=== PATIENT | female | born 1955 | race Caucasian/White ===

== ENCOUNTER 2025-02-10 13:15 | Outpatient (AMB) | payer MEDICARE, SELFPAY ==
--- NOTE | 2025-02-10 13:29 | A.OFFVIS_ITS ---
Intake Visit Reasons: restless leg syndrome Allergies doxycycline Allergy (Unknown, Verified 02/05/25 09:51) Unknown Penicillins Allergy (Unknown, Verified 02/05/25 09:51) Unknown tramadol Allergy (Unknown, Verified 02/05/25 09:51) Unknown Medication List - Last Reconciled 02/10/25 by Jeremy Garcia MD aspirin 81 mg PO DAILY atorvastatin 40 mg PO DAILY cetirizine 10 mg PO DAILY esomeprazole magnesium 40 mg PO BID gabapentin 800 mg PO TID glipizide ER 2.5 mg PO DAILY metformin 1,000 mg PO BID morphine ER 15 mg PO Q8H oxycodone 10 mg PO TID PRN temazepam 22.5 mg PO BEDTIME PRN HPI Comments Details: This is a 70-year-old [place]i-speaking woman who is here with her daughter with complaints of right anterior thigh numbness tingling prickly sensation and heat. She also gets pain in the right buttock going to the lower back. She has had 3 previous back surgeries the last [address] Saba Solorzano about a year ago. She has chronic pain and takes morphine 15 mg 3 times a day, and oxycodone 10 mg 3 times a day. She is also on gabapentin 800 mg t.i.d.. She uses a lidocaine patch 5% p.r.n.. She has had previous weight loss surgery in 2011 and 2012. She is on metformin and glipizide for diabetes which is under control. Occasionally she has periods where her right leg and right hand will jerk when she is sleeping but this happens infrequently sometimes none for a month and then can happen about twice a week. She does not have a constant sensation of wanting to move the legs. In the last year she has put on about 30 lb and her weight has increased from 137lbs to 166 lbs. [facility] Medical History (Updated 02/10/25 @ 13:42 by Jeremy Garcia MD) Neuropathy involving both lower extremities ARELI (obstructive sleep apnea) Restless leg syndrome Review of Systems Const Reports weight gain ENT Reports neck pain Card Reports dyspnea Resp Reports dyspnea Musc Reports back pain, Reports arthralgias, Reports neck pain, Reports numbness and Reports tingling Neuro Reports numbness, Reports tingling, Reports paresthesias and Reports tremor(s) Psych Reports depression Physical Exam Neuro Other: ?Mini Mental Status Exam Level of Consciousness:?Alert.? Orientation:?Knows correct year, month, date, day and season.?Knows correct city, county and state. Knows correct location and floor.? Registration:?Able to register 3 objects.? Attention:?Serial 7's performed accurately.? Recall:?Able to recall 3 out of 3 objects.? Language:?Normal spontaneous speech, fluency, repetition, naming, comprehension, reading, and writing.? Total Score:?30/30.? Neurological Abnormal neurological findings:??none.? Mental Status:?Alert and oriented X 3.?Normal attention, orientation, memory, and affect.? Cranial Nerves:?Pupils are equal, round and reactive to light. Fundoscopy shows normal disc bilaterally. External occular muscles are intact. Visual schaeffer are full, no ptosis. Face is symmetrical, no facial weakness or droop. Facial sensations are normal. Tongue protrudes in midline. Palate elevates symmetrically. Shoulder shrugging is normal.? Motor Examination:?Normal muscle tone, bulk and strength.?No atrophy or fasciculations.?No drift of the extended upper extremities.?Deep tendon reflexes are 2+.?Plantars are flexor.? Motor Strength:? Proximal Muscles (out of 5):?5 Distal Muscles (out of 5):?5 Neck Flexors (out of 5):?5 Neck Extensors (out of 5):?5 Deltoid (out of 5):?5 Biceps (out of 5):?5 Triceps (out of 5):?5 Serratus Anterior (out of 5):?5 Wrist Extensors (out of 5):?5 APB (out of 5):?5 Finger Spread (out of 5):?5 Ileopsoas (out of 5):?5 Quadriceps (out of 5):?5 Hamstrings (out of 5):?5 Tibialis Anterior (out of 5):?5 Peronei (out of 5):?5 EDB (out of 5):?5 Gastrocnemius (out of 5):?5 Straight Leg Raising:?90 degrees.? Sensory Exam:?Normal light touch, temperature, pinprick, vibration and joint-position sensations.?Rhomberg sign is absent.? Coordination:?No ataxia,?no titubation,?ayabdu-pj-sruk, whfv-hnoc-xeey test, and rapid alternating movements were normal.? Gait Exam:?Within normal limits.? Cerebellar Signs:?Uthdus-sa-liev and rkso-zl-czzv is normal.?No dysdiadochokinesia.? Extrapyramidal System:?No tremor or?rigidity, normal facial expressions.?No bradykinesia. No bradyphrenia. Normal arm swing and posture. No propulsion or retropulsion.? Speech:?Normal,?no dysphasia or dysarthria.? General Examination GENERAL APPEARANCE:??normal,?in no acute distress?,?normal,?in no acute distress.? HEAD:??normocephalic,?atraumatic.? EYES:??sclera non-icteric,?conjunctiva clear.? EARS:??auditory canal clear,?tympanic membrane intact, clear.? NOSE:??no lesions.? ORAL CAVITY:??gums normal,?mucosa moist,?no lesions.? THROAT:??clear.? NECK/THYROID:??no cervical lymphadenopathy,?thyroid normal,?neck supple, full range of motion,?no carotid bruit.? SKIN:??no rashes,?no significant birthmarks.? HEART:??S1, S2 normal,?no murmurs?,?S1, S2 normal,?no murmurs.? LUNGS:??clear anteriorly and posteriorly?,?clear anteriorly and posteriorly.? CHEST:??no gross rib deformity,?clear to auscultation.? BACK:??normal exam of spine.? MUSCULOSKELETAL:??normal.? EXTREMITIES:??no edema?,?no edema.? PERIPHERAL PULSES:??normal.? PSYCH:??alert, oriented,?cognitive function intact,?cooperative with exam?,?alert, oriented,?cognitive function intact,?cooperative with exam.? Assessment & Plan Assessment & Plan (1) Meralgia paresthetica of right side: Code(s): G57.11 - Meralgia paresthetica, right lower limb Category: Medical (2) Lumbar radiculopathy, right: Code(s): M54.16 - Radiculopathy, lumbar region Category: Medical (3) Peripheral neuropathy: Code(s): G62.9 - Polyneuropathy, unspecified Category: [facility]. NCV/EMG Lower extremities. Orders: Orders NE electromyogram (EMG) Today G57.11 - Meralgia paresthetica, right lower limb, G62.9 - Polyneuropathy, unspecified, M54.16 - Radiculopathy, lumbar region NE nerve conduction velocity Today G57.11 - Meralgia paresthetica, right lower limb, G62.9 - Polyneuropathy, unspecified Coding Level of Care Code New Pt Level 5 (29832) Diagnoses Meralgia paresthetica of right side G57.11 Lumbar radiculopathy, right M54.16 Peripheral neuropathy G62.9
--- OUTSIDE RECORDS SUMMARY | 2025-02-11 05:49 | XMS_ITS ---
Author Name [facility] Organization Unknown Care Team Organization Name Specialty Phone Email Start Date End Da te [facility] MECHE MANGO Primary Care 01/31/2022 4
--- OUTSIDE RECORDS SUMMARY | 2025-02-11 05:49 | XMS_ITS | Clinical Summary ---
Author Organization [address] Address [address] [place] [address] Phone Care Team Providers Care Forensic Specialist Name Role Phone Shmuel Maldonado MD Primary Care Provider [phone] Allergies Active Allergy Reactions Criticality Noted Date Comments Doxycycline Nausea And Vomiting 01/22/2023 Penicillins 02/26/2014 Other Reaction(s): Rash/Dermatitis Tramadol 02/26/2014 Other Reaction(s): Rash/Dermatitis Medications amitriptyline (ELAVIL) 10 mg tablet Take 1 Tablet by mouth at bedtime. 01/25/20 24 Active ASCORBIC ACID, VITAMIN C, ORAL Take by mouth. Active medical supply, miscellaneous (MISCELLANEOUS MEDICAL SUPPLY MISC) Inhale into the lungs. BHIR-pressur e 6-12 Active lidocaine (LIDODERM) 5 % patch Place 1 Patch onto the skin every 12 hours. Apply for no more than 12 hours in any 24 hour period. 01/25/20 24 Active QUEtiapine (SEROquel) 50 mg tablet 01/25/20 24 Active triazolam (HALCION) 0.25 mg tablet 1 tablet (250 mcg total) at bedtime as needed. at bedtime. 06/21/19 21 Active temazepam (RESTORIL) 15 mg capsule TOME 1 C PSULA POR V A ORAL AL ACOSTARSE CUANDO SEA NECESARIO FOR SLEEP (NOT COVERED OVER 65) 07/11/19 25 Active cetirizine (ZyrTEC) 10 mg tablet TOME 1 TABLETA POR VIA ORAL TODOS LOS ALEXIS 90 tablet 1 10/11/19 25 Active aspirin 81 mg EC tablet Take 1 tablet (81 mg total) by mouth 1 (one) time each day. 90 tablet 1 11/05/19 25 Active atorvastatin (LIPITOR) 40 mg tablet Take 1 tablet (40 mg total) by mouth 1 (one) time each day. 90 tablet 1 12/06/19 25 Active esomeprazole (NexIUM) [address] capsule TOME 1 CAPSULA POR VIA ORAL TODOS LOS ALEXIS EN LA MANANA ANTES DEL DESAYUNO 90 capsule 1 12/17/19 25 Active doxepin (SINEquan) 25 mg capsule TOME 1 CAPSULA POR VIA ORAL TODOS LOS ALEXIS AL ACOSTARSE 90 capsule 1 12/17/19 25 Active metFORMIN (GLUCOPHAGE) 1,000 mg tablet Take 1 tablet (1,000 mg total) by mouth 2 (two) times a day with meals. 180 tablet 1 01/13/20 25 Active oxyCODONE (ROXICODONE) 10 mg immediate release tabletIndication s:Lumbar radiculopathy, chronic Take 1 tablet (10 mg total) by mouth 3 (three) times a day if needed for severe pain. Max Daily Amount: 30 mg 84 tablet 01/14/20 25 Active morphine (MS CONTIN) 15 mg 12 hr tabletIndication s:Lumbar radiculopathy, chronic Take 1 tablet (15 mg total) by mouth 2 (two) times a day. Do not crush, chew, or split. Max Daily Amount: 30 mg 56 tablet 01/14/20 25 Active glipiZIDE (GLUCOTROL XL) 2.5 mg 24 hr tablet Take 1 tablet (2.5 mg total) by mouth 1 (one) time each day. 90 tablet 1 02/05/20 25 Active gabapentin (Neurontin) 800 mg tablet Take 1 tablet (800 mg total) by mouth 3 (three) times a day. 270 each 1 02/05/20 25 Active blood-glucose meter kit Use to check blood sugar once daily. 1 each 02/05/20 25 Active blood sugar diagnostic (FreeStyle Lite Strips) test strip Use to check blood sugar once daily. 100 each 1 02/05/20 25 Active freestyle (FreeStyle Lancets) 28 gauge lancets Use to check blood sugar once daily. 100 each 1 02/05/20 25 Active diclofenac (VOLTAREN) 1 % topical gel Apply 2 g topically 4 (four) times a day. 100 g 1 02/05/20 25 Active blood-glucose meter kit Use to test blood sugar once daily. 05/23/19 24 025 Discontinued(R eorder) diclofenac (VOLTAREN) 1 % topical gel Apply 1 g topically 4 times daily as needed for Other (left knee pain). 01/25/20 025 Discontinued(R eorder) FREESTYLE LANCETS MISC Use to test blood sugar 2 times daily 11/02/19 025 Discontinued(R eorder) blood sugar diagnostic (FreeStyle Lite Strips) test strip TEST BLOOD SUGAR 2 TIMES DAILY 12/20/19 025 Discontinued(R eorder) glipiZIDE (GLUCOTROL XL) 2.5 mg 24 hr tablet Take 1 tablet (2.5 mg total) by mouth 1 (one) time each day. 90 tablet 1 09/12/19 025 Discontinued(R eorder) gabapentin (NEURONTIN) 300 mg capsule Take 3 Capsules by mouth 3 times daily. 270 capsule 11/05/19 025 Discontinued oxyCODONE (ROXICODONE) 10 mg immediate release tabletIndication s:Lumbar radiculopathy, chronic Take 1 tablet (10 mg total) by mouth 3 (three) times a day if needed for severe pain. Max Daily Amount: 30 mg 84 tablet 12/10/19 25 025 Discontinued(R eorder) morphine (MS CONTIN) 15 mg 12 hr tabletIndication s:Lumbar radiculopathy, chronic Take 1 tablet (15 mg total) by mouth 2 (two) times a day. Do not crush, chew, or split. Max Daily Amount: 30 mg 56 tablet 12/10/19 25 025 Discontinued(R eorder) Active Problems Problem Noted Date Diagnosed Date Arthritis 03/05/2024 Gastric ulcer 03/05/2024 HTN (hypertension) 03/05/2024 Hyperlipidemia 03/05/2024 MDD (major depressive disorder) 03/05/2024 Type 2 diabetes mellitus wit h neurologic complication ([facility] V24, [facility] V28) 03/05/2024 Spinal stenosis of lumbar region with radiculopa thy 09/21/2023 Overview (03/05/2024): Last Assessment & Plan: Ms. López is known to me from a right L3-4, right L4-5 MIS decompression on 02/13/2022. She initially did well but presents now with recurrent back pain radiating into her right leg. She is currently in PT which causes cramps in her thigh. Occasionally she has numbness of the right anterior thigh after 10 to 15 minutes of sitting or more than 5 minutes of walking. She is quite miserable. Repeat lumbar spine MRI from [facility] on 09/18/2023 is notable for persistent/recurrent foraminal stenosis on the right at L4-5. On exam, seated SLR is positive on the right at 90 degrees, strength is 5/5, sensation to light touch intact, she is ambulating with a cane. We discussed treatment options and she is terrified of needles and does not wish to consider injection therapy. She is not improving with physical therapy thus, we reviewed the option of a repeat right L4-5 decompression with foraminotomies. We discussed the details, risks, benefits and anticipated postoperative course. All questions were answered and she wishes to proceed. Lumbar radiculopathy, chronic 08/01/2023 Overview (03/05/2024): Last Assessment & Plan: Ms. López is about 2 weeks status post right sided L4-5 redo minimally invasive decompression, foraminotomies, and discectomy. Since the surgery she has had improvement in her right leg pain but still says that it hurts when she stands up. It is not as intense. She is pleased with her early postoperative results and I would agree with her. She will follow-up with Dr. Solorzano on an as-needed basis. Sacroiliitis ([facility] V24) 08/01/2023 Overview (03/05/2024): Last Assessment & Plan: Cristina describes pain that is centered just above her right buttock. It goes into the posterior proximal thigh and also up into the right flank. I gave her a prescription for an SI joint belt at her last visit but she did not fill it. She is currently in physical therapy. We once again talked about SI joint injections and an SI joint fusion. She has a significant phobia to needles and is not willing to consider an injection. I explained that if that was the case, she was stuck with treatments limited at SI joint belt and physical therapy. She will go to [facility] to get the SI joint belt. Calculus of kidney 07/31/2023 Chronic osteoarthritis 07/31/2023 Gastroesophageal reflux disease 07/31/2023 Generalized anxiety disorder 07/31/2023 Heartburn 07/31/2023 Hypoglycemia following gastrointestinal surgery 07/31/2023 Morbid obesity ([facility] V24, [facility] V28) 2023 Stress incontinence of urine 01/17/2023 Urinary urgency 01/17/2023 Hip pain, acute, right 01/31/2022 Overview (03/05/2024): Last Assessment & Plan: Though her hip pain could be related to the right L3 foraminal stenosis and nerve root compression, she had positive findings on mechanical testing and feels best when she is nonweightbearing. I am going to send her for right hip x-rays to look for osteoarthritis there. 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 López is here for second postop visit since a right L3-4 and right L4-5 MIS decompression on 02/13/2022. Her right low back and radiating leg pain has resolved however, she has persistent numbness of the right anterior thigh with occasional tingling particularly above the knee. They are often charley horse cramps in her thigh for which she applies moist heat with some benefit. She continues to have right ankle pain with movement and walking. She describes swelling and walks with a cane. On exam, her incision is well-healed, seated SLR is negative, strength 5/5, sensation to light touch is diminished at the distal right quadriceps. There is moderate swelling below the right ankle and she exhibits pain with movement in all directions. I believe she is improving from her lumbar radiculopathy and cautioned her that numbness can take up to a year to improve. We discussed stretching and strengthening as well. I believe her right ankle pain and swelling is unrelated and we will refer her to orthopedics. Chronic back pain 06/15/2020 Calcaneal spur of right foot 09/02/2019 Neuropathy involving both lower extremities 11/25 Sleep-related hypoventilation due to medical con dition 09/15/2016 Vitamin D deficiency 05/22/2016 Opioid type dependence ([facility] V24, [facility] V28 ) 07/15/2014 ARELI (obstructive sleep apnea) 07/15/2014 Overview (03/05/2024): Postlaminectomy syndrome, lumbar region 05/12/19 15 Pulmonary embolism ([facility] V24, [facility] V28) Encounters Date Type Department Care Team Description 02/04/2025 11:50 AM EST Lab Draw [address] Type 2 diabetes mellitus with diabetic neuropathy, without long-term current use of insulin ([facility] V24, [facility] V28); Hyperlipidemia, unspecified hyperlipidemia type; Anemia, unspecified type 02/04/2025 11:00 AM EST Office Visit Adult Medicine [address] [phone] Saira Venegas PA Encounter for long-term (current) use of medications (Primary Dx); Chronic low back pain, unspecified back pain laterality, unspecified whether sciatica present; Gastroesophageal reflux disease, unspecified whether esophagitis present; Type 2 diabetes mellitus with diabetic neuropathy, without long-term current use of insulin ([facility] V24, [facility] V28); Hyperlipidemia, unspecified hyperlipidemia type; Lumbar radiculopathy, chronic; History of hypertension; Major depressive disorder, remission status unspecified, unspecified whether recurrent; Insomnia, unspecified type; Urinary incontinence, unspecified type from Last 3 Months Immunizations Immunization Administration Dates Next Due Influenza Quadravalent, MDCK , 0.5ml, preservative free (Flucelvax) 6mo and older 12/15/2021,12/13/2020,12/05/2019 Influenza trivalent, 0.5mL ( Fluad) 65yo and older 01/25/2024 Influenza trivalent, 0.5mL, preservative free (Fluarix; FluLaval; Fluzone) ages 6mo and older (Afluria) 3 years and older 01/29/2015,01/16/2007 Influenza trivalent, with pr eservative (Fluzone; Afluria) 6mo and older 2014,12/05/2011 Influenza, Unspecified 01/02/2014 Pneumococcal polysaccharide 23 valent (Pneumovax 23) 2yo and older 04/13/2015 Pneumococcal, Unspecified 2014,03/26/2003 Td, Unspecified 10/14/2008 Tdap Tetanus diptheria acell ular pertussis (Boostrix; Adacel) 7yo and older 05/02/2016 Zoster recombinant (Shingrix ) 19yo and older 09/02/2024 Surgical History Surgery Date Site/Laterality Comments GASTRIC BYPASS 12/24/19 14 PROCEDURE: GASTRIC BYPASS FOR OBESIT OTHER SURGICAL HISTORY 01/20/20 14 PROCEDURE: HISTORICAL COSMETIC SURGERY; COMMENT: pannectomy of abdomen BACK SURGERY PROCEDURE: HISTORICAL BACK SURGERY KNEE SURGERY PROCEDURE: HISTORICAL KNEE SURGERY; COMMENT: Left SHOULDER SURGERY PROCEDURE: HISTORICAL SHOULDER SURGERY OTHER SURGICAL HISTORY PROCEDURE: UT ICAPSULAR CATARACT XTRJ INSJ IO LENS PRSTH 1 STG; COMMENT: Bilateral OTHER SURGICAL HISTORY PROCEDURE: VENA CAVA FILTER ESOPHAGOGASTRODUODENOSCOPY 11/2016, 02/2017, 10/2017, 12/2018 PROCEDURE: UT ESOPHAGOGASTRODUODENOSCOPY TRANSORAL DIAGNOSTIC; COMMENT: marginal ulcer found at the anastomosis. UPPER GASTROINTESTINAL ENDOSCOPY 10/21/19 PROCEDURE: UPPER GI ENDOSCOPY/EXAM; COMMENT: changes consistent with gastric bypass. NO ulcer. HYSTERECTOMY PROCEDURE: HISTORICAL HYSTERECTOMY OTHER SURGICAL HISTORY 02/14/20 PROCEDURE: UT BARRERA FACETECTOMY & FORAMOTOMY 1 VRT SGM LUMBAR; COMMENT: Right L3-4, right L4-5 minimally invasive decompression, Dr. Solorzano Medical History Medical History Date Comments HTN (hypertension) DX:HTN (hyper tension) Diabetes ([facility] V24, [facility] V28) DX:Diabetes ([facility]) Arthritis DX:Arthritis Hypercholesteremia DX:Hyperchole steremia Depression with anxiety DX:Depre ssion with anxiety Eric filter in place DX:Gr eenfield filter in place Diabetes mellitus type 2, uncontrolled DX:Diabetes mellitus type 2, uncontrolled MDD (major depressive disorder) DX:MDD (major depressive disorder) Diabetes mellitus type 2, di et-controlled ([facility] V24, [facility] V28) DX:Diabetes mellitus type 2 , diet-controlled ([facility]) Hyperlipidemia DX:Hyperlipidemi a Postlaminectomy syndrome, lumbar region 5 DX:Postlaminectomy syndrome, lumbar region Gastric ulcer DX:Gastric ulcer Esophageal reflux DX:Esophageal reflux Cerebrovascular disease DX:Cereb rovascular disease Family History Medical History Relation Name Comments Prostate cancer Brother 1 x 2 Diabetes Father's side Coronary artery disease Mother's side 1 Hypertension Mother's side 2 Breast cancer Neg Hx Colon cancer Neg Hx Ovarian cancer Neg Hx Relation Name Status Comments Brother 1 Brother 2 Alive x 9 Brother 3 x 11; prostate CA, AIDs Daughter Alive x 4; 1 with fib romyalgia; cervical cancer x 2 Father Father's side Maternal Grandfather Maternal Grandmother Mother Mother's side 1 Mother's side 2 Paternal Grandfather Paternal Grandmother Sister Alive x 3 Social History Tobacco Use Types Packs/Day Years Used Date Smoking Tobacco: Never Smokeless Tobacco: Never Tobacco Cessation:Counseling Given: Not Answered Alcohol Use Standard Drinks/Week Comments No 0 (1 standard drink = 0.6 oz pur e alcohol) Comments Unknown Sex and Gender Information Value Date Recorded Sex Assigned at Not on file Legal Sex Female 2:08 AM EST Gender Identity Not on file Sexual Orientation Not on file Obstetrics History Last Filed Vital Signs Vital Sign Reading Time Taken Comments Blood Pressure 120/70 02/04/2025 11:10 AM EST Pulse 94 02/04/2025 11:10 AM EST Temperature 36.3 C (97.4 F) 02/04/2025 11:10 AM EST Respiratory Rate 16 11/04/2024 10:53 AM EDT Oxygen Saturation 94% 02/04/2025 11:10 AM EST Inhaled Oxygen Concentration - - Weight 75.5 kg (166 lb 6.4 oz) 02/04/2025 11:10 AM EST Height 154.9 cm (5' 0.98 ) 02/04/2025 11:10 AM Susan BRAVO Body Mass Index 31.46 02/04/2025 11:10 AM EST Plan of Treatment Upcoming Encounters Date Type Department Care Team (Late st Contact Info) Description 05/19/2025 3:30 PM EST Office Visit Adult Medicine [facility] [address] [place] [address] Shmuel Maldonado MD [address] [place] [phone] Health Maintenance Due Date Last Done Comments Breast Cancer Screening 1955 Diabetes: Annual Foot Exam 1967 Hepatitis A Vaccines (1 of 2 - Risk 2-dose series) 01/21/1976 RSV Immunization Adult Patients (1 - Risk 50-74 years 1-dose series) 2007 Pneumococcal Vaccine: 50+ Years (2 of 2 - PCV) 04/13/2016 04/13/2015, 2014, 2014, Additional history exists Falls Risk Assessment 03/04/2022 Osteoporosis Screening (Bone Density Screening) 03/04/2022 Social Influencers of Health Screening 03/04/2022 Medicare Annual Wellness Visit 01/24/2024 01/23/2023 Depression Screening 03/26/2024 Diabetes: Annual Retina Eye Exam 07/15/2024 07/16/2023 Zoster Vaccines (2 of 2) 10/28/2024 09/02/2024 COVID-19 Vaccine ( - season) 2024 01/27/2021, 01/06/2021 Influenza Vaccine (#1) 2024 , 12/15/2021, 12/13/2020, Additional history exists Diabetes: Blood Sugar Control Test (HGBA1C) 08/04/2025 02/04/2025, 11/04/2024, 08/08/2024, Additional history exists Diabetes: Annual Urine Albumin-Creatinine Ratio (uACR) 08/08/2025 08/08/2024, 01/31/2024, 07/26/2023 Diabetes: Annual GFR (Glomerular Filtration Rate) 02/04/2026 02/04/2025, 08/08/2024, 01/25/2024, Additional history exists Hypertension/CHF/CAD Annual BMP Blood Test 02/04/2026 02/04/2025, 08/08/2024, 01/25/2024, Additional history exists DTaP,Tdap,and Td Vaccines (3 - Td or Tdap) 05/02/2026 05/02/2016, 10/14/2008 Colorectal Cancer Screening: Colonoscopy 07/19/2026 07/19/2016 Cholesterol Screening (Lipid Panel) 02/04/2030 02/04/2025, 08/08/2024, 01/25/2024, Additional history exists Hepatitis C Screening Completed 11/16/2014 HIB Vaccines Aged Out No longer eligi ble based on patient's age to complete this topic HPV Vaccines Aged Out No longer eligi ble based on patient's age to complete this topic Hepatitis B Vaccines Aged Out No long er eligible based on patient's age to complete this topic IPV Vaccines Aged Out No longer eligi ble based on patient's age to complete this topic MMR Vaccines Aged Out No longer eligi ble based on patient's age to complete this topic Meningococcal ACWY Vaccine Aged Out N o longer eligible based on patient's age to complete this topic Meningococcal B Vaccine Aged Out No l onger eligible based on patient's age to complete this topic RSV Immunization Patients Under 20 months Aged Out No longer eligible based on patient's age to complete this topic Varicella Vaccines Aged Out No longer eligible based on patient's age to complete this topic Procedures Procedure Name Priority Date/Time Associated Diagnosis Comments CBC WITH AUTO DIFFERENTIAL Routine 02/04/2025 12:03 PM EST Anemia, unspecified type CBC AND DIFFERENTIAL Routine 02/04/2025 12:03 PM EST Anemia, unspecified type FERRITIN Routine 02/04/2025 12:03 PM EST Anemia, unspecified type FOLATE Routine 02/04/2025 12:03 PM EST Anemia, unspecified type IRON AND TIBC Routine 02/04/2025 12:03 PM EST Anemia, unspecified type VITAMIN B12 Routine 02/04/2025 12:03 PM EST Anemia, unspecified type HEMOGLOBIN A1C Routine 02/04/2025 12:03 PM EST Type 2 diabetes mellitus with diabetic neuropathy, without long-term current use of insulin ([facility] V24, [facility] V28) LIPID PANEL WITH REFLEX TO DIRECT LDL Routine 02/04/2025 12:03 PM EST Type 2 diabetes mellitus with diabetic neuropathy, without long-term current use of insulin ([facility] V24, [facility] V28) Hyperlipidemia, unspecified hyperlipidemia type COMPREHENSIVE METABOLIC PANEL Routine 02/04/2025 12:03 PM EST Type 2 diabetes mellitus with diabetic neuropathy, without long-term current use of insulin ([facility] V24, [facility] V28) MICROALBUMIN CREATININE URINE RATIO Routine 08/08/2024 10:54 AM EDT Type 2 diabetes mellitus with diabetic neuropathy, without long-term current use of insulin ([facility] V24, [facility] V28) DIABETES EYE EXAM Routine 07/16/2023 COLONOSCOPY Routine 07/19/2016 HEPATITIS C SCREENING Routine 11/16/2014 from Last 3 Months or Most Recently Relevant to Health Maintenance Results * Lipid panel with reflex to direct LDL (02/04/2025 12:03 PM EST) Cholesterol 137 0 - 200 mg/dL LAB CHEMISTRY METHOD 02/04/2025 3:54 PM EST [facility] Triglycerides 123 0 - 150 mg/dL LAB CHEMISTRY METHOD 02/04/2025 3:54 PM EST [facility] HDL 60 >=40 mg/dL LAB CHEMISTRY METHOD 02/04/2025 3:54 PM EST [facility] LDL Calculated 52 0 - 100 mg/dL LAB CHEMISTRY METHOD 02/04/2025 3:54 PM [facility] Comment:Estimated LDL Calcul ated using equation: Total cholesterol - HDL cholesterol - (Triglycerides/5) VLDL Cholesterol Curtis 24.6 mg/dL LAB CHEMISTRY METHOD 02/04/2025 3:54 PM EST [facility] Non HDL Chol. (LDL+VLDL) 77 <145 mg/dL LAB CHEMISTRY METHOD 02/04/2025 3:54 PM [facility] Chol/HDL Ratio 2.3 0.0 - 4.4 LAB CHEMISTRY METHOD 02/04/2025 3:54 PM [facility] Blood Venous blood specimen / Unknown Venipuncture / Unknown 02/04/2025 12:03 PM EST 02/04/2025 12:03 PM EST us Saira INGRAM LAB BLOOD ORDERABLES Fi nal Result [facility] [address] [place] [address], * (ABNORMAL) CBC auto differential (02/04/2025 12:03 PM EST) WBC 7.4 4.8 - 10.8 K/mcL LAB HEMETOLOGY METHOD 02/04/2025 2:24 PM [facility] RBC 4.60 3.80 - 4.80 M/mcL LAB HEMETOLOGY METHOD 02/04/2025 2:24 PM [facility] Hemoglobin 11.5 11.5 - 16.0 g/dL LAB HEMETOLOGY METHOD 02/04/2025 2:24 PM [facility] Hematocrit 38.2 35.0 - 47.0 % LAB HEMETOLOGY METHOD 02/04/2025 2:24 PM [facility] MCV 83.2 79.0 - 98.0 FL LAB HEMETOLOGY METHOD 02/04/2025 2:24 PM [facility] MCH 25.1(L) 27.0 - 32.0 pcg LAB HEMETOLOGY METHOD 02/04/2025 2:24 PM [facility] MCHC 30.1(L) 32.0 - 37.0 g/dL LAB HEMETOLOGY METHOD 02/04/2025 2:24 PM [facility] RDW 18.1(H) 11.0 - 15.0 % LAB HEMETOLOGY METHOD 02/04/2025 2:24 PM [facility] Platelets 359 130 - 400 K/mcL LAB HEMETOLOGY METHOD 02/04/2025 2:24 PM [facility] MPV 9.7 7.0 - 11.0 FL LAB HEMETOLOGY METHOD 02/04/2025 2:24 PM [facility] NRBC 0.0 <1.0 % LAB HEMETOLOGY METHOD 02/04/2025 2:24 PM [facility] NRBC Absolute 0.00 <0.10 K/mcL LAB HEMETOLOGY METHOD 02/04/2025 2:24 PM [facility] Neutrophils Relative 56.3 % LAB HEMETOLOGY METHOD 02/04/2025 2:24 PM [facility] Lymphocytes Relative 30.3 % LAB HEMETOLOGY METHOD 02/04/2025 2:24 PM [facility] Monocytes Relative 9.1 % LAB HEMETOLOGY METHOD 02/04/2025 2:24 PM [facility] Eosinophils Relative 3.5 % LAB HEMETOLOGY METHOD 02/04/2025 2:24 PM [facility] Basophils Relative 0.5 % LAB HEMETOLOGY METHOD 02/04/2025 2:24 PM [facility] Immature Granulocytes Relative 0.3 % LAB HEMETOLOGY METHOD 02/04/2025 2:24 PM EST [facility] Neutrophils Absolute 4.13 1.50 - 7.00 K/[facility] LAB HEMETOLOGY METHOD 02/04/2025 2:24 PM EST [facility] Lymphocytes Absolute 2.23 1.00 - 5.00 K/mcL LAB HEMETOLOGY METHOD 02/04/2025 2:24 PM EST [facility] Monocytes Absolute 0.67 0.20 - 1.00 K/[facility] LAB HEMETOLOGY METHOD 02/04/2025 2:24 PM EST [facility] Eosinophils Absolute 0.26 0.00 - 0.50 K/[facility] LAB HEMETOLOGY METHOD 02/04/2025 2:24 PM EST [facility] Basophils Absolute 0.04 0.00 - 0.20 K/mcL LAB HEMETOLOGY METHOD 02/04/2025 2:24 PM EST [facility] Immature Granulocytes Absolute 0.02 0.00 - 0.03 K/mcL LAB HEMETOLOGY METHOD 02/04/2025 2:24 PM EST [facility] Blood Venous blood specimen / Unknown Venipuncture / Unknown 02/04/2025 12:03 PM EST 02/04/2025 12:03 PM EST us Saira INGRAM LAB BLOOD ORDERABLES Fi nal Result [facility] [address] [place] [address], * (ABNORMAL) Iron and TIBC (02/04/2025 12:03 PM EST) Iron 34(L) 40 - 150 mcg/dL LAB CHEMISTRY METHOD 02/04/2025 3:54 PM EST [facility] TIBC 410 250 - 450 mcg/dL LAB CHEMISTRY METHOD 02/04/2025 3:54 PM EST [facility] Iron Saturation 8(L) 15 - 50 % LAB CHEMISTRY METHOD 02/04/2025 3:54 PM EST [facility] Blood Venous blood specimen / Unknown Venipuncture / Unknown 02/04/2025 12:03 PM EST 02/04/2025 12:03 PM EST Saira Venegas MD LAB BLOOD ORDERABLES Fi nal Result [facility] [address] [place] [address], [place] [phone] * (ABNORMAL) Hemoglobin A1c (02/04/2025 12:03 PM EST) Hemoglobin A1C 7.6(H) <6.5 % LAB CHEMISTRY METHOD 02/04/2025 9:53 PM EST [facility] Mean Bld Glu Estim. 171 mg/dL LAB CHEMISTRY METHOD 02/04/2025 9:53 PM EST [facility] Blood Venous blood specimen / Unknown Venipuncture / Unknown 02/04/2025 12:03 PM EST 02/04/2025 12:03 PM EST Saira INGRAM LAB BLOOD ORDERABLES Fi nal Result [facility] [address] [place] [address], [place] [phone] * (ABNORMAL) Folate (02/04/2025 12:03 PM EST) Folate >20.0(H) 2.8 - 17.0 ng/ml LAB CHEMISTRY METHOD 02/04/2025 3:54 PM EST [facility] Blood Venous blood specimen / Unknown Venipuncture / Unknown 02/04/2025 12:03 PM EST 02/04/2025 12:03 PM EST Saira INGRAM LAB BLOOD ORDERABLES Fi nal Result [facility] [address] [place] [address], [place] [phone] * Ferritin (02/04/2025 12:03 PM EST) [facility] Ferritin 8 8 - 252 ng/mL LAB CHEMISTRY METHOD 02/04/2025 4:06 PM EST [facility] Blood Venous blood specimen / Unknown Venipuncture / Unknown 02/04/2025 12:03 PM EST 02/04/2025 12:03 PM EST Saira Venegas MD LAB BLOOD ORDERABLES Fi nal Result Performing Organization Address [facility]/ZIP Co de Phone Number [facility] [address] [place] [address], [place] [phone] * Vitamin B12 (02/04/2025 12:03 PM EST) [facility] Vitamin B-12 368 250 - 900 pcg/mL LAB CHEMISTRY METHOD 02/04/2025 3:54 PM EST [facility] Blood Venous blood specimen / Unknown Venipuncture / Unknown 02/04/2025 12:03 PM EST 02/04/2025 12:03 PM EST Saira Venegas MD LAB BLOOD ORDERABLES Fi nal Result Performing Organization Address [facility]/ZIP Co de Phone Number [facility] [address] [place] [address], [place] [phone] * (ABNORMAL) Comprehensive metabolic panel (02/04/2025 12:03 PM EST) [facility] Sodium 140 133 - 145 mmol/L LAB CHEMISTRY METHOD 02/04/2025 3:54 PM EST [facility] Potassium 4.6 3.5 - 5.5 mmol/L LAB CHEMISTRY METHOD 02/04/2025 3:54 PM [facility] Chloride 107 96 - 110 mmol/L LAB CHEMISTRY METHOD 02/04/2025 3:54 PM [facility] CO2 26 21 - 32 mmol/L LAB CHEMISTRY METHOD 02/04/2025 3:54 PM [facility] Anion Gap 7 3 - 11 LAB CHEMISTRY METHOD 02/04/2025 3:54 PM [facility] Glucose 102(H) 70 - 100 mg/dL LAB CHEMISTRY METHOD 02/04/2025 3:54 PM [facility] BUN 24 5 - 25 mg/dL LAB CHEMISTRY METHOD 02/04/2025 3:54 PM [facility] Creatinine 1.03 0.50 - 1.10 mg/dL LAB CHEMISTRY METHOD 02/04/2025 3:54 PM [facility] eGFR 59(L) >=60 mL/min/1. 73m2 LAB CHEMISTRY METHOD 02/04/2025 3:54 PM [facility] Comment:Calculation based on the Chronic Kidney Disease Epidemiology Collaboration (CKD-EPI) equation refit without adjustment for race. BUN/Creatinine Ratio 23.3 LAB CHEMISTRY METHOD 02/04/2025 3:54 PM [facility] Calcium 9.2 8.5 - 10.5 mg/dL LAB CHEMISTRY METHOD 02/04/2025 3:54 PM [facility] AST (SGOT) 17 10 - 42 unit/L LAB CHEMISTRY METHOD 02/04/2025 3:54 PM [facility] ALT (SGPT) 24 10 - 60 unit/L LAB CHEMISTRY METHOD 02/04/2025 3:54 PM [facility] Alkaline Phosphatase 78 42 - 121 unit/L LAB CHEMISTRY METHOD 02/04/2025 3:54 PM [facility] Total Protein 7.1 6.0 - 8.0 g/dL LAB CHEMISTRY METHOD 02/04/2025 3:54 PM EST [facility] Albumin 3.6 3.2 - 5.0 g/dL LAB CHEMISTRY METHOD 02/04/2025 3:54 PM EST [facility] Total Bilirubin 0.3 0.0 - 1.4 mg/dL LAB CHEMISTRY METHOD 02/04/2025 3:54 PM EST [facility] Blood Venous blood specimen / Unknown Venipuncture / Unknown 02/04/2025 12:03 PM EST 02/04/2025 12:03 PM EST Saira INGARM LAB BLOOD ORDERABLES Fi nal Result Performing Organization Address [facility]/ZIP Co de Phone Number [facility] [address] [place] [address], * Microalbumin creatinine urine ratio (08/08/2024 10:54 AM EDT) Creatinine, Urine 73.0 mg/dL LAB CHEMISTRY METHOD 08/08/2024 1:29 PM EDT [facility] Microalb, Ur 12.3 0.0 - 29.0 mg/L LAB CHEMISTRY METHOD 08/08/2024 1:29 PM EDT [facility] Microalb/Creat Ratio 17 <30 mg/g creat LAB CHEMISTRY METHOD 08/08/2024 1:29 PM EDT [facility] Urine Urine specimen obtained by clean catch procedure / Unknown Non-blood Collection / Unknown 08/08/2024 10:54 AM EDT 08/08/2024 12:17 PM EDT Shmuel Maldonado MD LAB URINE ORDERABLES Final Resu lt Performing Organization Address [facility]/ZIP Co de Phone Number [facility] [address] [place] [address], * Hm Diabetes Eye Exam (07/16/2023) Pathologist [facility] Diabetes: Annual Retina Eye Exam Abstracted Historical Provider HEALTH MAINTENANCE Final Result * Colonoscopy (07/19/2016) Pathologist [facility] Colonoscopy No interpretation , Abstracted Anatomical Region Laterality Modality Other [facility] Provider HEALTH MAINTENANCE Final Result * Hepatitis C Screening (11/16/2014) Pathologist [facility] Hepatitis C Screening Abstracted Historical Provider HEALTH MAINTENANCE Final Result from Last 3 Months or Most Recently Relevant to Health Maintenance Insurance [employer] Member Subscriber Plan / Payer (Ef fective 2022-Present) Name:Jamee López Relation to Subscriber:Self Name:Jamee López Payer ID:[id number] Group ID:[id number] Type:Not on file Address: [place] [address] [place] [id number] Care Teams Forensic Specialist Relationship Specialty Start Date End Date Shmuel Maldonado MD [address] [place] [phone] PCP - General Internal Medicine 05/05/24
== END 2025-02-10 13:53 | disposition home or self-care (01) ==
LOC: HO.HSM 13:15
PROVIDERS: PCP Internal Medicine; Visit Provider Psychiatry & Neurology Neurology
DX: G57.11 Meralgia paresthetica, right lower limb (principal); G62.9 Polyneuropathy, unspecified
CPT/HCPCS: 99204

== ENCOUNTER → 2025-02-10 13:15 | Outpatient (BNVA) | payer OTHER, SELFPAY | PROVIDERS: PCP Internal Medicine; Visit Provider Psychiatry & Neurology Neurology | DX: G57.11 Meralgia paresthetica, right lower limb (principal); G62.9 Polyneuropathy, unspecified | CPT/HCPCS: 99202 ==

== ENCOUNTER 2025-03-04 13:28 | Outpatient (REF) | payer MEDICARE, SELFPAY ==
--- NOTE | 2025-03-04 14:46 | EMG_ITS ---
Chief complaint: Tingling burning, diabetic Referred by:?Dr Garcia Procedure done: Right lower extremity NCS/EMG Impression: Normal motor and sensory nerve conduction velocities in the right lower extremity. Normal EMG of the right L4-S1 innervated muscles. No evidence of diffuse neuropathy. Please see detailed neurophysiological report Codin [id number] 1 extremity MTDD
== END 2025-03-04 13:29 | disposition home or self-care (01) ==
LOC: HO.NEURO 13:28
PROVIDERS: PCP Internal Medicine; Visit Provider Psychiatry & Neurology Neurology
DX: G57.11 Meralgia paresthetica, right lower limb (principal); G62.9 Polyneuropathy, unspecified
CPT/HCPCS: 95885; 95910

== ENCOUNTER → 2025-03-04 14:46 | Outpatient (BNV) | payer MEDICARE, SELFPAY | PROVIDERS: PCP Internal Medicine; Visit Provider Psychiatry & Neurology Neurology | DX: G57.11 Meralgia paresthetica, right lower limb (principal) | CPT/HCPCS: 95885; 95909 ==

== ENCOUNTER → 2025-03-10 14:10 | Outpatient (BNVA) | payer MEDICARE, SELFPAY | PROVIDERS: PCP Internal Medicine; Visit Provider Psychiatry & Neurology Neurology | DX: G57.11 Meralgia paresthetica, right lower limb (principal) | CPT/HCPCS: 99212 ==

== ENCOUNTER → 2025-03-10 14:10 | Outpatient (AMB) | payer MEDICARE, SELFPAY ==
--- NOTE | 2025-03-10 14:13 | A.OFFVIS_ITS ---
Intake Visit Reasons: after testing Allergies doxycycline Allergy (Unknown, Verified 02/05/25 09:51) Unknown Penicillins Allergy (Unknown, Verified 02/05/25 09:51) Unknown tramadol Allergy (Unknown, Verified 02/05/25 09:51) Unknown HPI Comments Details: This is a 70-year-old [place] African-speaking woman who is here with her daughter with complaints of right anterior thigh numbness tingling prickly sensation and heat. She also gets pain in the right buttock going to the lower back. She has had 3 previous back surgeries the last [address] Saba Solorzano about a year ago. She has chronic pain and takes morphine 15 mg 3 times a day, and oxycodone 10 mg 3 times a day. She is also on gabapentin 800 mg t.i.d.. She uses a lidocaine patch 5% p.r.n.. She has had previous weight loss surgery in 2011 and 2012. She is on metformin and glipizide for diabetes which is under control. Occasionally she has periods where her right leg and right hand will jerk when she is sleeping but this happens infrequently sometimes none for a month and then can happen about twice a week. She does not have a constant sensation of wanting to move the legs. In the last year she has put on about 30 lb and her weight has increased from 137lbs to 166 lbs. [facility] Medical History (Updated 02/10/25 @ 13:42 by Jeremy Garcia MD) Neuropathy involving both lower extremities ARELI (obstructive sleep apnea) Restless leg syndrome Review of Systems Const Reports weight gain ENT Reports neck pain Card Reports dyspnea Resp Reports dyspnea Musc Reports back pain, Reports arthralgias, Reports neck pain, Reports numbness and Reports tingling Neuro Reports numbness, Reports tingling, Reports paresthesias and Reports tremor(s) Psych Reports depression Results Reviewed Results Reviewed: NCV/ EMG RLE: Impression: Normal motor and sensory nerve conduction velocities in the right lower extremity. Normal EMG of the right L4-S1 innervated muscles. No evidence of diffuse neuropathy. Please see detailed neurophysiological report MRI LS spin ereviewed . Scoliosis of spine and narrow neural foramina at multiple levels on the right Assessment & Plan Assessment & Plan (1) Lumbar radiculopathy, right: Code(s): M54.16 - Radiculopathy, lumbar region Category: Medical (2) Meralgia paresthetica of right side: Code(s): G57.11 - Meralgia paresthetica, right lower limb Category: Medical Plan Daughter to make another appt. with Neurosurgery to see if any further decompreesion of the neural foramina on the right side in the lower spine could be done. The patient absolutely refuses to go to a pain clinic and will not get any epidural injections. Coding Level of Care Code Est Pt Level 4 (21169) Diagnoses Lumbar radiculopathy, right M54.16 Meralgia paresthetica of right side G57.11
--- OUTSIDE RECORDS SUMMARY | 2025-03-10 18:23 | XMS_ITS | Encounter Summary ---
Author Organization [employer] [place] [address] Care Team Providers Care Solar Installation Helper Name Role Phone Shmuel Maldonado MD Primary Care Provider [phone] Encounter Details Date Type Department Care Team (Late Contact Info) Description 02/13/2025 Results Follow-Up Adult Medicine [address] [phone] Saira Venegas PA [address] [place] [address] Social History Tobacco Use Types Packs/Day Years Used Date Smoking Tobacco: Never Smokeless Tobacco: Never Alcohol Use Standard Drinks/Week Comments No 0 (1 standard drink = 0.6 oz pur e alcohol) Comments Unknown Sex and Gender Information Value Date Recorded Sex Assigned at Not on file Legal Sex Female 2:08 AM EST Gender Identity Not on file Sexual Orientation Not on file documented as of this encounter Plan of Treatment Upcoming Encounters Date Type Department Care Team (Late Contact Info) Description 05/19/2025 3:30 PM EST Office Visit Adult Medicine [address] [phone] Shmuel Maldonado MD [address] [place] [address] Scheduled Orders Name Type Priority Associated Diagnoses Orde r Schedule Basic metabolic panel Lab Routine Decreased GFR 1 Occurrences starting 02/13/2025 until 05/16/2025 documented as of this encounter Visit Diagnoses Diagnosis Decreased GFR- Primary documented in this encounter Care Teams Solar Installation Helper Relationship Specialty Start Date End Date Shmuel Maldonado MD [address] [place] [phone] PCP - General Internal Medicine 05/05/24 documented as of this encounter
--- OUTSIDE RECORDS SUMMARY | 2025-03-10 18:23 | XMS_ITS | Clinical Summary ---
Author Organization [address] Address [address] [place] [address] Phone Care Team Providers Care Weight Control Engineer Name Role Phone Shmuel Maldonado MD Primary Care Provider [phone] Allergies Active Allergy Reactions Criticality Noted Date Comments Doxycycline Nausea And Vomiting 01/22/2023 Penicillins 02/26/2014 Other Reaction(s): Rash/Dermatitis Tramadol 02/26/2014 Other Reaction(s): Rash/Dermatitis Medications amitriptyline (ELAVIL) 10 mg tablet Take 1 Tablet by mouth at bedtime. 4 Active ASCORBIC ACID, VITAMIN C, ORAL Take by mouth. Active medical supply, miscellaneous (MISCELLANEOUS MEDICAL SUPPLY MISC) Inhale into the lungs. BHIR-pressure 6-12 Active lidocaine (LIDODERM) 5 % patch Place 1 Patch onto the skin every 12 hours. Apply for no more than 12 hours in any 24 hour period. 4 Active QUEtiapine (SEROquel) 50 mg tablet 4 Active triazolam (HALCION) 0.25 mg tablet 1 tablet (250 mcg total) at bedtime as needed. at bedtime. 1 Active temazepam (RESTORIL) 15 mg capsule TOME 1 C PSULA POR V A ORAL AL ACOSTARSE CUANDO SEA NECESARIO FOR SLEEP (NOT COVERED OVER 65) 5 Active cetirizine (ZyrTEC) 10 mg tablet TOME 1 TABLETA POR VIA ORAL TODOS LOS ALEXIS 90 tablet 1 5 Active aspirin 81 mg EC tablet Take 1 tablet (81 mg total) by mouth 1 (one) time each day. 90 tablet 1 5 Active atorvastatin (LIPITOR) 40 mg tablet Take 1 tablet (40 mg total) by mouth 1 (one) time each day. 90 tablet 1 5 Active esomeprazole (NexIUM) [address] capsule TOME 1 CAPSULA POR VIA ORAL TODOS LOS ALEXIS EN LA MANANA ANTES DEL DESAYUNO 90 capsule 1 5 Active doxepin (SINEquan) 25 mg capsule TOME 1 CAPSULA POR VIA ORAL TODOS LOS ALEXIS AL ACOSTARSE 90 capsule 1 5 Active metFORMIN (GLUCOPHAGE) 1,000 mg tablet Take 1 tablet (1,000 mg total) by mouth 2 (two) times a day with meals. 180 tablet 1 5 Active glipiZIDE (GLUCOTROL XL) 2.5 mg 24 hr tablet Take 1 tablet (2.5 mg total) by mouth 1 (one) time each day. 90 tablet 1 5 Active gabapentin (Neurontin) 800 mg tablet Take 1 tablet (800 mg total) by mouth 3 (three) times a day. 270 each 1 5 Active blood-glucose meter kit Use to check blood sugar once daily. 1 each 5 Active blood sugar diagnostic (FreeStyle Lite Strips) test strip Use to check blood sugar once daily. 100 each 1 5 Active freestyle (FreeStyle Lancets) 28 gauge lancets Use to check blood sugar once daily. 100 each 1 5 Active diclofenac (VOLTAREN) 1 % topical gel Apply 2 g topically 4 (four) times a day. 100 g 1 5 Active morphine (MS CONTIN) 15 mg 12 hr tabletIndications :Lumbar radiculopathy, chronic Take 1 tablet (15 mg total) by mouth 2 (two) times a day. Do not crush, chew, or split. Max Daily Amount: 30 mg 56 tablet 5 Active oxyCODONE (ROXICODONE) 10 mg immediate release tabletIndications :Lumbar radiculopathy, chronic Take 1 tablet (10 mg total) by mouth 3 (three) times a day if needed for severe pain. Max Daily Amount: 30 mg 84 tablet 5 Active oxyCODONE (ROXICODONE) 10 mg immediate release tabletIndications :Lumbar radiculopathy, chronic Take 1 tablet (10 mg total) by mouth 3 (three) times a day if needed for severe pain. Max Daily Amount: 30 mg 84 tablet 5 025 Discontin ued(Reord er) morphine (MS CONTIN) 15 mg 12 hr tabletIndications :Lumbar radiculopathy, chronic Take 1 tablet (15 mg total) by mouth 2 (two) times a day. Do not crush, chew, or split. 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 Repeat lumbar spine MRI from [facility] on 09/18/2023 is notable for persistent/recurrent foraminal [...] Dr. Solorzano on an as-needed basis. Sacroiliitis 08/01/2023 Overview (03/05/2024): Last Assessment & Plan: [...] and physical therapy. She will go to [facility] [place] to get the SI joint belt. Calculus of kidney 07/31/2023 Chronic osteoarthritis 07/31/2023 Gastroesophageal reflux disease 07/31/2023 Generalized anxiety disorder 07/31/2023 Heartburn 07/31/2023 Hypoglycemia following gastrointestinal surgery 07/31/2023 Morbid obesity 07/31/2023 Stress incontinence of urine 01/17/2023 Urinary urgency [...] Vitamin D deficiency 05/22/2016 Opioid type dependence 07/15/2014 ARELI (obstructive sleep apnea) 07/15/2014 Overview (03/05/2024): Postlaminectomy syndrome, lumbar region 05/12/19 15 Pulmonary embolism 03/03/2014 Encounters Date Type Department Care Team Description 02/16/2025 Telephone Adult [address] [phone] Saira Venegas PA 02/13/2025 Results Follow-Up [address] [phone] Saira Venegas PA 02/04/2025 11:50 AM EST Lab Draw [address] Type 2 diabetes mellitus with diabetic neuropathy, without long-term current use of insulin ([facility] V24, [facility] V28); Hyperlipidemia, unspecified hyperlipidemia type; Anemia, unspecified type 02/04/2025 11:00 AM EST Office Visit [address] [phone] Saira Venegas PA Encounter for long-term (current) use of medications (Primary Dx); Chronic low back pain, unspecified back pain laterality, unspecified whether sciatica present; Gastroesophageal reflux disease, unspecified whether esophagitis present; Type 2 diabetes mellitus with diabetic neuropathy, without long-term current use of insulin ([facility] V24, [facility] V28); Hyperlipidemia, unspecified hyperlipidemia type; Lumbar radiculopathy, [...] HISTORICAL SHOULDER SURGERY OTHER SURGICAL HISTORY PROCEDURE: MD ICAPSULAR CATARACT XTRJ INSJ IO LENS PRSTH 1 STG; COMMENT: Bilateral OTHER SURGICAL HISTORY PROCEDURE: VENA CAVA FILTER ESOPHAGOGASTRODUODENOSCOPY 11/2016, 02/2017, 10/2017, 12/2018 PROCEDURE: MD ESOPHAGOGASTRODUODENOSCOPY TRANSORAL DIAGNOSTIC; COMMENT: marginal ulcer found at the anastomosis. UPPER GASTROINTESTINAL ENDOSCOPY 10/21/19 PROCEDURE: UPPER GI ENDOSCOPY/EXAM; COMMENT: changes consistent with gastric bypass. NO ulcer. HYSTERECTOMY PROCEDURE: HISTORICAL HYSTERECTOMY OTHER SURGICAL HISTORY 02/14/20 PROCEDURE: MD BARRERA FACETECTOMY & FORAMOTOMY 1 VRT SGM LUMBAR; COMMENT: Right L3-4, right L4-5 minimally invasive decompression, Dr. Solorzano Medical History Medical History Date Comments HTN (hypertension) DX:HTN (hyper tension) Diabetes ([facility] V24, [facility] V28) DX:Diabetes ([facility]) Arthritis DX:Arthritis Hypercholesteremia DX:Hyperchole steremia Depression with anxiety DX:Depre ssion with anxiety Eric filter in place DX:Gr eenfield filter in place Diabetes mellitus type 2, uncontrolled DX:Diabetes mellitus type 2, uncontrolled MDD (major depressive disorder) DX:MDD (major depressive disorder) Diabetes mellitus type 2, di et-controlled (CMS/HCC V24, [facility] V28) DX:Diabetes mellitus type 2 , diet-controlled ([facility]) Hyperlipidemia DX:Hyperlipidemi a Postlaminectomy syndrome, lumbar region [...] on file Sexual Orientation Not on file Last Filed Vital Signs Vital Sign Reading [...] cm (5' 0.98 ) 02/04/2025 11:[address] Body Mass Index 31.46 02/04/2025 11:10 AM EST Plan of Treatment Upcoming Encounters Date Type Department Care Team (Late st Contact Info) Description 05/19/2025 3:30 PM EST Office Visit Adult Medicine [address] [phone] Shmuel Maldonado MD [address] [place] [address] Health Maintenance Due Date Last Done Comments Breast Cancer Screening 1955 Naloxone Order 1957 Non-Opioid Controlled Substance Agreement 1957 Opioid Substance Agreement 1957 Pain Assessment 1957 Diabetes: Annual Foot Exam 1967 Hepatitis [...] (2 of 2) 10/28/2024 09/02/2024 COVID-19 Vaccine (3 - season) 2024 01/27/2021, 01/06/2021 Influenza Vaccine (#1) 2024 , 12/15/2021, 12/13/2020, Additional history exists Drug Screen 05/06/2025 05/06/2024 Diabetes: Blood Sugar Control Test (HGBA1C) 08/04/2025 [...] neuropathy, without long-term current use of insulin (CMS/[facility] V24, CMS/HCC V28) LIPID PANEL WITH REFLEX TO DIRECT LDL Routine 02/04/2025 12:03 PM EST Type 2 diabetes mellitus with diabetic neuropathy, without long-term current use of insulin ([facility] V24, [facility] V28) Hyperlipidemia, unspecified hyperlipidemia type COMPREHENSIVE METABOLIC PANEL Routine 02/04/2025 12:03 PM EST Type 2 diabetes mellitus with diabetic neuropathy, without long-term current use of insulin ([facility] V24, [facility] V28) MICROALBUMIN CREATININE URINE RATIO Routine 08/08/2024 10:54 AM EDT Type 2 diabetes mellitus with diabetic neuropathy, without long-term current use of insulin ([facility] V24, [facility] V28) DRUG ABUSE SCREEN 8A PANEL, URINE Routine 05/06/2024 11:43 AM EST Encounter for long-term (current) use of medications DIABETES EYE EXAM Routine 07/16/2023 COLONOSCOPY Routine 07/19/2016 HEPATITIS C SCREENING Routine 11/16/2014 from Last 3 Months or Most Recently Relevant to Health Maintenance Results * Lipid panel with reflex to direct LDL (02/04/2025 12:03 PM EST) Cholesterol 137 0 - 200 mg/dL LAB CHEMISTRY METHOD 02/04/2025 3:54 PM [facility] Triglycerides 123 0 - 150 mg/dL LAB CHEMISTRY METHOD 02/04/2025 3:54 PM [facility] HDL 60 >=40 mg/dL LAB CHEMISTRY METHOD 02/04/2025 3:54 PM [facility] LDL Calculated 52 0 - 100 mg/dL LAB CHEMISTRY METHOD 02/04/2025 3:54 PM [facility] Comment:Estimated LDL Calcul ated using equation: Total cholesterol - HDL cholesterol - (Triglycerides/5) VLDL Cholesterol Curtis 24.6 mg/dL LAB CHEMISTRY METHOD 02/04/2025 3:54 PM EST [facility] Non HDL Chol. (LDL+VLDL) 77 <145 mg/dL LAB CHEMISTRY METHOD 02/04/2025 3:54 PM [facility] Chol/HDL Ratio 2.3 0.0 - 4.4 LAB CHEMISTRY METHOD 02/04/2025 3:54 PM [facility] Blood Venous blood specimen / Unknown Venipuncture / Unknown 02/04/2025 12:03 PM EST 02/04/2025 12:03 PM EST us Saira INGRAM LAB BLOOD ORDERABLES Fi nal Result [facility] [address] [place] [address], * (ABNORMAL) CBC auto differential (02/04/2025 12:03 PM EST) WBC 7.4 4.8 - 10.8 K/mcL LAB HEMETOLOGY METHOD 02/04/2025 2:24 PM [facility] RBC 4.60 3.80 - 4.80 M/mcL LAB HEMETOLOGY METHOD 02/04/2025 2:24 PM [facility] Hemoglobin 11.5 11.5 - 16.0 g/dL LAB HEMETOLOGY METHOD 02/04/2025 2:24 PM [facility] Hematocrit 38.2 35.0 - 47.0 % LAB HEMETOLOGY METHOD 02/04/2025 2:24 PM [facility] MCV 83.2 79.0 - 98.0 FL LAB HEMETOLOGY METHOD 02/04/2025 2:24 PM [facility] MCH 25.1(L) 27.0 - 32.0 pcg LAB HEMETOLOGY METHOD 02/04/2025 2:24 PM [facility] MCHC 30.1(L) 32.0 - 37.0 g/dL LAB HEMETOLOGY METHOD 02/04/2025 2:24 PM [facility] RDW 18.1(H) 11.0 - 15.0 % LAB HEMETOLOGY METHOD 02/04/2025 2:24 PM [facility] Platelets 359 130 - 400 K/mcL LAB HEMETOLOGY METHOD 02/04/2025 2:24 PM [facility] MPV 9.7 7.0 - 11.0 FL LAB HEMETOLOGY METHOD 02/04/2025 2:24 PM [facility] NRBC 0.0 <1.0 % LAB HEMETOLOGY METHOD 02/04/2025 2:24 PM [facility] NRBC Absolute 0.00 <0.10 K/mcL LAB HEMETOLOGY METHOD 02/04/2025 2:24 PM [facility] Neutrophils Relative 56.3 % LAB HEMETOLOGY METHOD 02/04/2025 2:24 PM [facility] Lymphocytes Relative 30.3 % LAB HEMETOLOGY METHOD 02/04/2025 2:24 PM [facility] Monocytes Relative 9.1 % LAB HEMETOLOGY METHOD 02/04/2025 2:24 PM [facility] Eosinophils Relative 3.5 % LAB HEMETOLOGY METHOD 02/04/2025 2:24 PM [facility] Basophils Relative 0.5 % LAB HEMETOLOGY METHOD 02/04/2025 2:24 PM [facility] Immature Granulocytes Relative 0.3 % LAB HEMETOLOGY METHOD 02/04/2025 2:24 PM [facility] Neutrophils Absolute 4.13 1.50 - 7.00 K/mcL LAB HEMETOLOGY METHOD 02/04/2025 2:24 PM [facility] Lymphocytes Absolute 2.23 1.00 - 5.00 K/mcL LAB HEMETOLOGY METHOD 02/04/2025 2:24 PM EST [facility] Monocytes Absolute 0.67 0.20 - 1.00 K/mcL LAB HEMETOLOGY METHOD 02/04/2025 2:24 PM EST [facility] Eosinophils Absolute 0.26 0.00 - 0.50 K/mcL LAB HEMETOLOGY METHOD 02/04/2025 2:24 PM EST [facility] Basophils Absolute 0.04 0.00 - 0.20 K/mcL LAB HEMETOLOGY METHOD 02/04/2025 2:24 PM EST [facility] Immature Granulocytes Absolute 0.02 0.00 - 0.03 K/mcL LAB HEMETOLOGY METHOD 02/04/2025 2:24 PM [facility] Blood Venous blood specimen / Unknown Venipuncture / Unknown 02/04/2025 12:03 PM EST 02/04/2025 12:03 PM EST Saira INGRAM LAB BLOOD ORDERABLES Fi nal Result [facility] [address] [place] [address], * (ABNORMAL) Iron and TIBC (02/04/2025 12:03 PM EST) Iron 34(L) 40 - 150 mcg/dL LAB CHEMISTRY METHOD 02/04/2025 3:54 PM EST [facility] TIBC 410 250 - 450 mcg/dL LAB CHEMISTRY METHOD 02/04/2025 3:54 PM EST [facility] Iron Saturation 8(L) 15 - 50 % LAB CHEMISTRY METHOD 02/04/2025 3:54 PM EST [facility] Blood Venous blood specimen / Unknown Venipuncture / Unknown 02/04/2025 12:03 PM EST 02/04/2025 12:03 PM EST Saira INGRAM LAB BLOOD ORDERABLES Fi nal Result Performing Organization Address City/[facility]/ZIP Co de Phone Number [facility] [address] [place] [address], [place] [phone] * (ABNORMAL) Hemoglobin A1c (02/04/2025 12:03 PM EST) [facility] Hemoglobin A1C 7.6(H) <6.5 % LAB CHEMISTRY METHOD 02/04/2025 9:53 PM EST [facility] Mean Bld Glu Estim. 171 mg/dL LAB CHEMISTRY METHOD 02/04/2025 9:53 PM EST [facility] Blood Venous blood specimen / Unknown Venipuncture / Unknown 02/04/2025 12:03 PM EST 02/04/2025 12:03 PM EST Saira INGRAM LAB BLOOD ORDERABLES Fi nal Result Performing Organization Address [facility]/ZIP Co de Phone Number [facility] [address] [place] [address], [place] [phone] * (ABNORMAL) Folate (02/04/2025 12:03 PM EST) [facility] Folate >20.0(H) 2.8 - 17.0 ng/ml LAB CHEMISTRY METHOD 02/04/2025 3:54 PM EST [facility] Blood Venous blood specimen / Unknown Venipuncture / Unknown 02/04/2025 12:03 PM EST 02/04/2025 12:03 PM EST Saira Venegas NE LAB BLOOD ORDERABLES Fi nal Result Performing Organization Address City/[facility]/ZIP Co de Phone Number [facility] [address] [place] [address], [place] [phone] * Ferritin (02/04/2025 12:03 PM EST) [facility] Ferritin 8 8 - 252 ng/mL LAB CHEMISTRY METHOD 02/04/2025 4:06 PM EST [facility] Blood Venous blood specimen / Unknown Venipuncture / Unknown 02/04/2025 12:03 PM EST 02/04/2025 12:03 PM EST Saira INGRAM LAB BLOOD ORDERABLES Fi nal Result Performing Organization Address City/[facility]/ZIP Co de Phone Number [facility] [address] [place] [address], [place] [phone] * Vitamin B12 (02/04/2025 12:03 PM EST) [facility] Vitamin B-12 368 250 - 900 pcg/mL LAB CHEMISTRY METHOD 02/04/2025 3:54 PM [facility] Blood Venous blood specimen / Unknown Venipuncture / Unknown 02/04/2025 12:03 PM EST 02/04/2025 12:03 PM EST Saira INGRAM LAB BLOOD ORDERABLES Fi nal Result Performing Organization Address City/[facility]/ZIP Co de Phone Number [facility] [address] [place] [address], [place] [phone] * (ABNORMAL) Comprehensive metabolic panel (02/04/2025 12:03 PM EST) [facility] Sodium 140 133 - 145 mmol/L LAB CHEMISTRY METHOD 02/04/2025 3:54 PM EST [facility] Potassium 4.6 3.5 - 5.5 mmol/L LAB CHEMISTRY METHOD 02/04/2025 3:54 PM EST [facility] Chloride 107 96 - 110 mmol/L LAB CHEMISTRY METHOD 02/04/2025 3:54 PM EST [facility] CO2 26 21 - 32 mmol/L LAB CHEMISTRY METHOD 02/04/2025 3:54 PM [facility] Anion Gap 7 3 - 11 LAB CHEMISTRY METHOD 02/04/2025 3:54 PM [facility] Glucose 102(H) 70 - 100 mg/dL LAB CHEMISTRY METHOD 02/04/2025 3:54 PM [facility] BUN 24 5 - 25 mg/dL LAB CHEMISTRY METHOD 02/04/2025 3:54 PM [facility] Creatinine 1.03 0.50 - 1.10 mg/dL LAB CHEMISTRY METHOD 02/04/2025 3:54 PM [facility] eGFR 59(L) >=60 mL/min/1. 73m2 LAB CHEMISTRY METHOD 02/04/2025 3:54 PM [facility] Comment:Calculation based on the Chronic Kidney Disease Epidemiology Collaboration (CKD-EPI) equation refit without adjustment for race. BUN/Creatinine Ratio 23.3 LAB CHEMISTRY METHOD 02/04/2025 3:54 PM [facility] Calcium 9.2 8.5 - 10.5 mg/dL LAB CHEMISTRY METHOD 02/04/2025 3:54 PM [facility] AST (SGOT) 17 10 - 42 unit/L LAB CHEMISTRY METHOD 02/04/2025 3:54 PM [facility] ALT (SGPT) 24 10 - 60 unit/L LAB CHEMISTRY METHOD 02/04/2025 3:54 PM [facility] Alkaline Phosphatase 78 42 - 121 unit/L LAB CHEMISTRY METHOD 02/04/2025 3:54 PM [facility] Total Protein 7.1 6.0 - 8.0 g/dL LAB CHEMISTRY METHOD 02/04/2025 3:54 PM [facility] Albumin 3.6 3.2 - 5.0 g/dL LAB CHEMISTRY METHOD 02/04/2025 3:54 PM [facility] Total Bilirubin 0.3 0.0 - 1.4 mg/dL LAB CHEMISTRY METHOD 02/04/2025 3:54 PM [facility] Blood Venous blood specimen / Unknown Venipuncture / Unknown 02/04/2025 12:03 PM EST 02/04/2025 12:03 PM EST Saira INGRAM LAB BLOOD ORDERABLES Fi nal Result Performing Organization Address [facility]/ZIP Co de Phone Number [facility] [address] [place] [address], [place] [phone] * Microalbumin creatinine urine ratio (08/08/2024 10:54 AM EDT) Creatinine, Urine 73.0 mg/dL LAB CHEMISTRY METHOD 08/08/2024 1:29 PM EDT [facility] Microalb, Ur 12.3 0.0 - 29.0 mg/L LAB CHEMISTRY METHOD 08/08/2024 1:29 PM EDT [facility] Microalb/Creat Ratio 17 <30 mg/g creat LAB CHEMISTRY METHOD 08/08/2024 1:29 PM EDT [facility] Urine Urine specimen obtained by clean catch procedure / Unknown Non-blood Collection / Unknown 08/08/2024 10:54 AM EDT 08/08/2024 12:17 PM EDT Shmuel Maldonado MD LAB URINE ORDERABLES Final Resu lt Performing Organization Address City/[facility]/ZIP Co de Phone Number [facility] [address] [place] [address], [place] [phone] * (ABNORMAL) Drug abuse screen 8a panel, urine (05/06/2024 11:43 AM EST) Amphetamine Screen, Ur Negative Negative LAB CHEMISTRY METHOD 5 3:46 PM EST [facility] Comment:Certain OTC medicati ons containing ephedrine, phenylephrine, pseudoephedrine and phenylpropanolamine can cause false positive results. Barbiturate Screen, Ur Negative Negative LAB CHEMISTRY METHOD 5 3:46 PM EST [facility] Benzodiazepine Screen, Ur Negative Negative LAB CHEMISTRY METHOD 5 3:46 PM EST [facility] Cocaine Screen, Ur Negative Negative LAB CHEMISTRY METHOD 5 3:46 PM [facility] Opiate Screen, Ur Positive(A ) Negative LAB CHEMISTRY METHOD 5 3:46 PM [facility] Cannabinoid (THC) Screen, Ur Negative Negative LAB CHEMISTRY METHOD 5 3:46 PM EST [facility] Comment:Specimens from patie nts taking pantoprazole sodium (Protonix) have been shown to produce false positive results. Oxycodone Screen, Ur Positive(A ) Negative LAB CHEMISTRY METHOD 5 3:46 PM [facility] Fentanyl, Ur Negative Negative LAB CHEMISTRY METHOD 5 3:46 PM [facility] Urine Urine specimen obtained by clean catch procedure / Unknown Non-blood Collection / Unknown 05/06/2024 11:43 AM EST 05/06/2024 11:43 AM EST Narrative [facility] - 05/06/2024 3:46 PM EST Assay cutoffs: Amphetamines 1000 ng/mL Barbiturates 200 ng/mL Benzodiazepines 200 ng/mL Cocaine 300 ng/mL Fentanyl 1 ng/mL Opiates 300 ng/mL Oxycodone 100 ng/mL THC 50 ng/mL Semi-quantitative assay for screening purposes only. Unconfirmed screening result should not be used for non-medical purposes. *ALTERNATE METHOD CONFIRMATION DONE UPON REQUEST ONLY* Saira INGRAM LAB URINE ORDERABLES Fi nal Result [facility] [address] [place] [address], * Diabetes Eye Exam (07/16/2023) Diabetes: Annual Retina Eye Exam Abstracted Historical Provider HEALTH MAINTENANCE Final Result * Colonoscopy (07/19/2016) Colonoscopy No interpretation , Abstracted Anatomical Region Laterality Modality Other Historical Provider HEALTH MAINTENANCE Final Result * Hepatitis C Screening (11/16/2014) Hepatitis C Screening Abstracted Historical Provider HEALTH MAINTENANCE Final Result from Last 3 Months or Most Recently Relevant to Health Maintenance Insurance [employer] Member Subscriber Plan / Payer (Ef fective 2022-Present) Name:Jamee López Relation to Subscriber:Self Name:Jamee López Payer ID:[id number] Group ID:[id number] Type:Not on file Address: [facility] [address] [phone] Care Teams Weight Control Engineer Relationship Specialty Start Date End Date Shmuel Maldonado MD [address] [place] [address] PCP - General Internal Medicine 05/05/24
== END ==
LOC: HO.HSM 14:11
PROVIDERS: PCP Internal Medicine; Visit Provider Psychiatry & Neurology Neurology
DX: M54.16 Radiculopathy, lumbar region (principal); G57.11 Meralgia paresthetica, right lower limb
CPT/HCPCS: 99214